=== PATIENT | female | born 1985 | race Hispanic/Latino ===

== ENCOUNTER 2022-11-23 20:03 | Emergency (ER) | payer BC, MEDICAID ==
[~2022-11-23] VITALS: Ht 167.6 cm; Wt 106.1 kg
[~2022-11-23 20:03] MED LIST: ACET1TAB12 PO; DOCU-116 PO; IBUP-2071 PO; IRON-6 PO; PNV91TAB3 PO
[2022-11-23 20:05] VITALS: BP 118/74
[2022-11-23] MEDS ORDERED: CYCL10TA16 PO (22:00)
== END 2022-11-23 22:05 | disposition home or self-care (01) ==
LOC: EDH 20:03
DX: M62.830 Muscle spasm of back (principal); V89.2XXA Person injured in unspecified motor-vehicle accident, traffic, initial encounter; Y93.89 Activity, other specified; Y92.89 Other specified places as the place of occurrence of the external cause; Y99.8 Other external cause status